=== PATIENT | female | born 1960 ===

== ENCOUNTER 2017-03-08 10:29 | Day surgery (SDC) | payer SELFPAY ==
[2017-03-08 11:27] VITALS: BMI 28.1
[2017-03-08] MEDS ORDERED: Lactated Ringer's 500 ML IV ONE (11:31)
[2017-03-08 11:44] VITALS: RESP 18
[2017-03-08] MEDS ORDERED: Propofol 10 mg/ml Inj (20 ML) ONE (11:48)
[2017-03-08 12:20] VITALS: BP 100/46; PULSE 63; TEMP 96.9; O2SAT 100
== END 2017-03-08 13:30 | disposition home or self-care (01) ==
LOC: H.ENDO 10:29
PROVIDERS: ATTEND Internal Medicine Gastroenterology
DX: Z12.11 Encounter for screening for malignant neoplasm of colon (principal); E78.5 Hyperlipidemia, unspecified; K57.30 Diverticulosis of large intestine without perforation or abscess without bleeding; K64.1 Second degree hemorrhoids